=== PATIENT | male | born 1985 | race Caucasian/White ===

== ENCOUNTER 2018-10-16 12:18 | Emergency (ER) | payer MEDICAID, MEDICARE ==
[~2018-10-16] VITALS: Ht 172.7 cm; Wt 72.3 kg
[2018-10-16 12:25] VITALS: BP 119/66
--- NOTE | 2018-10-16 12:45 | NUR ---
Pt resting on gurney. NADN. No obvious defecits observed. Lab at bedside. Pt has unlabored respirations with even chest rise and fall.
[2018-10-16 12:55] LABS: BASOPHILS # (AUTO) 0.02 x10^3/uL (0-0.1); BASOPHILS % (AUTO) 1 % (0-1); EOSINOPHILS # (AUTO) 0.09 x10^3/uL (0-0.4); EOSINOPHILS % (AUTO) 2 % (1-7); LYMPHOCYTES # (AUTO) 1.14 x10^3/uL (1-3.4); LYMPHOCYTES % (AUTO) 24 % (22-44); MD NO; MEAN CORPUSCULAR HEMOGLOBIN 28.2 pg (27.5-34.5); MEAN CORPUSCULAR HGB CONC 32.8 g/dL (33.2-36.2); MEAN CORPUSCULAR VOLUME 86.1 fL (81-97); MEAN PLATELET VOLUME 8.7 fL (7.4-10.4); MONOCYTES % (AUTO) 9 % (2-9); NEUTROPHILS # (AUTO) 3.03 x10^3/uL (1.8-6.8); NEUTROPHILS % (AUTO) 65 % (42-75); PLATELET COUNT 211 x10^3/uL (130-400); RED BLOOD COUNT 5.22 x10^6/uL (4.38-5.82); RED CELL DISTRIBUTION WIDTH 14.3 % (9.4-14.8)
[2018-10-16 13:04] LABS: ALBUMIN 3.8 g/dL (3.4-5.0); ANION GAP 8 mmol/L (5-15); CALCIUM 8.6 mg/dL (8.5-10.1); CHLORIDE 105 mmol/L (98-107); CREATININE 0.98 mg/dL (0.7-1.3)
--- NOTE | 2018-10-16 13:04 | NUR ---
Pt ambualtes with steady gait and balance to restroom. NADN.
--- NOTE | 2018-10-16 13:08 | NUR ---
Kirill Bravo [phone] call if patient requests
[2018-10-16 13:09] LABS: SALICYLATE LEVEL < 1.7 mg/dL (2.8-20.0)
[2018-10-16 13:29] LABS: AMPHETAMINE SCREEN, URINE Negative (Negative); BARBITURATE SCREEN, URINE Negative (Negative); BENZODIAZEPINE SCREEN, URINE Negative (Negative); CANNABINOID SCREEN, URINE Negative (Negative); COCAINE SCREEN, URINE Negative (Negative); METHADONE SCREEN, URINE Negative (Negative); OPIATE SCREEN, URINE Negative (Negative)
--- NOTE | 2018-10-16 13:45 | NUR ---
Pt requests to use phone to call mother. Pt ambulates to registration desk telephone and calls mom. [facility].
[2018-10-16] MEDS ORDERED: SODIUM CHLORIDE FLUSH 10ML SYR IVF ONE (14:00)
[2018-10-16] MEDS ORDERED: SODIUM CHLORIDE 0.9% 1,000ML IVBOLUS ONE (14:00)
--- NOTE | 2018-10-16 15:34 | NUR ---
Patient given discharge instructions and they have confirmed that they understand the instructions. Patient ambulatory with steady gait. Pt left with dc paperwork and all personal belongings. NADN. No needs expressed. Pt encouraged to follow up wither referral.
== END 2018-10-16 15:38 | disposition home or self-care (01) ==
LOC: ED 15:30
DX: F41.9 Anxiety disorder, unspecified (principal); F15.10 Other stimulant abuse, uncomplicated; E86.0 Dehydration
CPT/HCPCS: 36415; 80048; 80307; 82040; 85025; 93005; 96360; 99284; J7030

== ENCOUNTER 2019-05-07 18:55 | Emergency (ER) | payer MEDICAID, MEDICARE ==
[~2019-05-07] VITALS: Ht 175.3 cm; Wt 73.0 kg
[2019-05-07 19:10] VITALS: BP 103/64
--- NOTE | 2019-05-07 19:48 | NUR ---
Discharge instructions given. All questions and concerns addressed. Patient ambulatory with a steady gait. Belongings with patient. Directed patient to phone to call his mother.
== END 2019-05-07 19:50 | disposition home or self-care (01) ==
LOC: ED 19:00
DX: F32.0 Major depressive disorder, single episode, mild (principal); F43.24 Adjustment disorder with disturbance of conduct; Z72.9 Problem related to lifestyle, unspecified; F17.200 Nicotine dependence, unspecified, uncomplicated
CPT/HCPCS: 99284